=== PATIENT | male | born 1990 | race Two or more races ===

== ENCOUNTER 2024-06-20 11:09 | Emergency (ER) | payer OTHER ==
[~2024-06-20] VITALS: Ht 170.2 cm; Wt 69.9 kg
[2024-06-20 11:11] VITALS: TEMP 97.5
[2024-06-20 12:18] LABS: HEMATOCRIT 45.4 % (42.0-52.0); HEMOGLOBIN 16.3 g/dl (13.5-17.5); MEAN CORPUSCULAR HEMOGLOBIN 31.2 pg (27.0-33.0); MEAN CORPUSCULAR HGB CONC 35.9 g/dl (32.0-36.5); PLATELET COUNT, AUTOMATED 184 10^3/uL (150-450); RED BLOOD COUNT 5.22 10^6/uL (4.30-6.10); WHITE BLOOD COUNT 4.9 10^3/uL (4.0-10.0)
[2024-06-20 12:43] LABS: BLOOD UREA NITROGEN 14 MG/DL (9-23); CALCIUM LEVEL 8.4 MG/DL (8.5-10.1); CARBON DIOXIDE LEVEL 28 MMOL/L (20-31); CHLORIDE LEVEL 106 MMOL/L (98-107); CREATININE FOR GFR 0.63 MG/DL (0.70-1.30); GLOMERULAR FILTRATION RATE > 90.0 (>60); GLUCOSE, FASTING 106 MG/DL (60-100); POTASSIUM SERUM 3.4 MMOL/L (3.5-5.1); SODIUM LEVEL 142 MMOL/L (136-145)
[2024-06-20 13:09] VITALS: BP 134/85; O2SAT 97
== END 2024-06-20 13:19 | disposition home or self-care (01) ==
LOC: M ED 11:09
DX: R19.7 Diarrhea, unspecified (principal); T43.295A Adverse effect of other antidepressants, initial encounter

== ENCOUNTER → 2024-06-28 | Outpatient (CLI) | payer OTHER | LOC: EDUNIT# 10:30 → M RAD 10:42 | PROVIDERS: ATTEND Nurse Practitioner Family | DX: R20.2 Paresthesia of skin (principal); G56.21 Lesion of ulnar nerve, right upper limb ==

== ENCOUNTER → 2024-07-01 | Outpatient (CLI) | payer OTHER | LOC: M PLARAD 09:45 | PROVIDERS: ATTEND Physician Assistant | DX: M54.2 Cervicalgia (principal); J32.8 Other chronic sinusitis ==

== ENCOUNTER 2024-07-13 20:03 | Emergency (ER) | payer OTHER ==
[~2024-07-13] VITALS: Ht 170.2 cm; Wt 71.0 kg
[2024-07-13 23:35] VITALS: BP 134/87; TEMP 98.4; O2SAT 99
== END 2024-07-13 23:41 | disposition home or self-care (01) ==
LOC: M ED 20:03
DX: S20.221A Contusion of right back wall of thorax, initial encounter (principal); W01.118A Fall on same level from slipping, tripping and stumbling with subsequent striking against other sharp object, initial encounter; Y92.9 Unspecified place or not applicable; Y93.9 Activity, unspecified; Y99.9 Unspecified external cause status

== ENCOUNTER → 2024-09-05 | Outpatient (CLI) | payer OTHER | LOC: M RAD 08:26 | PROVIDERS: ATTEND Nurse Practitioner Family | DX: R74.01 Elevation of levels of liver transaminase levels (principal); K76.0 Fatty (change of) liver, not elsewhere classified ==

== ENCOUNTER → 2025-01-12 | Outpatient (REF) | LOC: M PLAIMG 13:32 | PROVIDERS: ATTEND Internal Medicine | DX: R52 Pain, unspecified (principal) ==